=== PATIENT | female | born 1985 | race Two or more races ===

== ENCOUNTER 2018-10-21 16:36 | Emergency (ER) | payer OTHER ==
[~2018-10-21] VITALS: Ht 157.5 cm; Wt 59.0 kg
--- NOTE | 2018-10-21 16:36 | NUR ---
ED Nurse Note: pt brought in by [phone] from [facility], per EMS report, pt c/o abd pain x 30 min and nausea w/ vomiting x2. Hx gallstones and reports she had 2 months ago. Pt AA&ox4, gcs=15, skin warm and dry, +n but no vomiting at this time, +tenderness on RUQ abd, active BS, will cont monitor. VSS. custody at the bedside
[2018-10-21] MEDS ORDERED: Metoclopramide 10mg/2ml Inj IVP ONE (16:45)
[2018-10-21] MEDS ORDERED: DiphenhydrAMINE 50mg/ml Inj IVP ONE (16:45)
[2018-10-21] MEDS ORDERED: Morphine Sulfate 4mg/ml Inj (IV USE ONLY) IVP ONE (16:45)
[2018-10-21 16:53] LABS: APPEARANCE,URINE SLIGHTLY CLOUDY; BILIRUBIN, URINE NEGATIVE (NEGATIVE); COLOR,URINE AMBER; GLUCOSE, URINE (UA) NEGATIVE (NEGATIVE); KETONES,URINE NEGATIVE (NEGATIVE); LEUKOCYTE ESTERASE ,URINE 2+ (NEGATIVE); NITRITE,URINE NEGATIVE (NEGATIVE); PH,URINE 5 (4.5-8.0); PROTEIN,URINE 1+ (NEGATIVE); UROBILINOGEN,URINE NORMAL MG/DL (0.0-1.0)
--- NOTE | 2018-10-21 16:58 | NUR ---
ED Nurse Note: ultrasound at the bedside.
[2018-10-21 17:02] LABS: BASOPHILS % (AUTO) 0.5 % (0.0-2.0); HEMATOCRIT 34.9 % (37.0-47.0); HEMOGLOBIN 12.7 G/DL (12.0-16.0); LYMPHOCYTES % (AUTO) 12.8 % (20.0-45.0); MEAN CORPUSCULAR VOLUME 104 FL (80-99); MONOCYTES % (AUTO) 3.8 % (1.0-10.0); PLATELET COUNT 323 K/UL (150-450); RED BLOOD COUNT 3.36 M/UL (4.20-5.40); RED CELL DISTRIBUTION WIDTH 10.5 % (11.6-14.8); WHITE BLOOD COUNT 11.2 K/UL (4.8-10.8)
[2018-10-21 17:05] VITALS: BP 111/74
[2018-10-21 17:07] LABS: ANION GAP 12 mmol/L (5-15); BLOOD UREA NITROGEN 13 mg/dL (7-18); CALCIUM 8.8 MG/DL (8.5-10.1); CARBON DIOXIDE 25 MMOL/L (21-32); CHLORIDE 104 MMOL/L (98-107); CREATININE 0.6 MG/DL (0.55-1.30); INR 1.1 (0.9-1.1); POTASSIUM 3.5 MMOL/L (3.5-5.1); SODIUM 141 MMOL/L (136-145)
--- NOTE | 2018-10-21 17:09 | Emergency Room Report ---
History of Present Illness General Chief Complaint: Abdominal Pain Source: Patient, EMS Present Illness HPI Patient presents with severe right upper quadrant pain. It began a few hours ago. She's in longterm and was brought by EMS here. She says the pain is 10/10 and radiating towards her back. She denies any fevers or chills. She's not vomiting any coffee grounds. She's moved her bowels normally. She has irregular periods and did have some bleeding in September but it was abnormal. She doesn't believe she is at this time. The patient has a history of gallbladder disease. They're talking about doing surgery at some point (ultrasound today reveals post poncho!). She believes it might be related to that. The patient denies drugs or alcohol. She also denies hepatitis. Allergies: Coded Allergies: IBUPROFEN (Verified Allergy, Unknown, 10/21/18) Patient History Past Medical History: see triage record Past Surgical History: poncho Social History: Denies: alcohol use, drug use Social History Narrative in custody for forgery Last Menstrual Period: unk Now: No : 9 Para: 8 Reviewed Nursing Documentation: PMH: Agreed; PSxH: Agreed Nursing Documentation-PMH Past Medical History: No History, Except For Review of Systems All Other Systems: negative except mentioned in HPI Physical Exam Vital Signs Date Time Temp Pulse Resp B/P (MAP) Pulse Ox O2 Delivery O2 Flow Rate FiO2 10/21/18 16:28 97.7 92 18 111/56 100 Room Air Sp02 EP Interpretation: reviewed, normal General Appearance: alert, GCS 15, mild distress Head: normocephalic Eyes: bilateral eye normal inspection, bilateral eye PERRL, bilateral eye EOMI ENT: moist mucus membranes Neck: supple Respiratory: lungs clear, normal breath sounds Cardiovascular #1: regular rate, rhythm Cardiovascular #2: 2+ radial (R) Gastrointestinal: normal inspection, non-distended, no rebound, guarding - Right upper quadrant, tenderness, decreased bowel sounds Genitourinary: no CVA tenderness Musculoskeletal: back normal, gait/station normal, normal range of motion Neurologic: alert, oriented x3, grossly normal Psychiatric: depressed affect Skin: normal inspection, warm/dry Medical Decision Making Diagnostic Impression: Primary Impression: RUQ abdominal pain Additional Impression: UTI (urinary tract infection) Qualified Codes: N30.00 - Acute cystitis without hematuria ER Course Patient presents with quadrant pain with a history of gallbladder disease. Differential includes pancreatitis, ulcer disease, cholecystitis, little cholelithiasis amongst others. Evaluation will be with labs and ultrasound. The patient will be treated with IV hydration, Pepcid, Reglan, Benadryl and morphine. U/S - post poncho. Min elevated WBC. UA with pyuria. Normal CMP and lipase. During U/S patient started shaking, stating she could not control the shaking. When told to calm down, the shaking stopped. Start antibiotics for UTI. Resting without pain. Patient stable for outpatient treatment and incarceration. Laboratory Tests Test 10/21/18 16:40 White Blood Count 11.2 K/UL (4.8-10.8) H Red Blood Count 3.36 M/UL (4.20-5.40) L Hemoglobin 12.7 G/DL (12.0-16.0) Hematocrit 34.9 % (37.0-47.0) L Mean Corpuscular Volume 104 FL (80-99) H Mean Corpuscular Hemoglobin 37.7 PG (27.0-31.0) H Mean Corpuscular Hemoglobin Concent 36.3 G/DL (32.0-36.0) H Red Cell Distribution Width 10.5 % (11.6-14.8) L Platelet Count 323 K/UL (150-450) Mean Platelet Volume 5.8 FL (6.5-10.1) L Neutrophils (%) (Auto) 83.0 % (45.0-75.0) H Lymphocytes (%) (Auto) 12.8 % (20.0-45.0) L Monocytes (%) (Auto) 3.8 % (1.0-10.0) Eosinophils (%) (Auto) 0.0 % (0.0-3.0) Basophils (%) (Auto) 0.5 % (0.0-2.0) Prothrombin Time 11.3 SEC (9.30-11.50) Prothrombin Time INR 1.1 (0.9-1.1) PTT 30 SEC (23-33) Urine Color Rissa Urine Appearance Slightly cloudy Urine pH 5 (4.5-8.0) Urine Specific [place] 1.020 (1.005-1.035) Urine Protein 1+ (NEGATIVE) H Urine Glucose (UA) Negative (NEGATIVE) Urine Ketones Negative (NEGATIVE) Urine Blood 1+ (NEGATIVE) H Urine Nitrite Negative (NEGATIVE) Urine Bilirubin Negative (NEGATIVE) Urine Ictotest Negative (NEGATIVE) Urine Urobilinogen Normal MG/DL (0.0-1.0) Urine Leukocyte Esterase 2+ (NEGATIVE) H Urine RBC 0-2 /HPF (0 - 2) Urine WBC 10-15 /HPF (0 - 2) H Urine Squamous Epithelial Cells Many /LPF (NONE/OCC) H Urine Bacteria Many /HPF (NONE) H Urine HCG, Qualitative Negative (NEGATIVE) Sodium Level 141 MMOL/L (136-145) Potassium Level 3.5 MMOL/L (3.5-5.1) Chloride Level 104 MMOL/L (98-107) Carbon Dioxide Level 25 MMOL/L (21-32) Anion Gap 12 mmol/L (5-15) Blood Urea Nitrogen 13 mg/dL (7-18) Creatinine 0.6 MG/DL (0.55-1.30) Estimate Glomerular Filtration Rate > 60 mL/min (>60) Glucose Level 104 MG/DL (74-106) Calcium Level 8.8 MG/DL (8.5-10.1) Total Bilirubin 0.9 MG/DL (0.2-1.0) Aspartate Amino Transferase (AST) 15 U/L (15-37) Alanine Aminotransferase (ALT) 22 U/L (12-78) Alkaline Phosphatase 106 U/L (46-116) Total Protein 8.0 G/DL (6.4-8.2) Albumin 4.0 G/DL (3.4-5.0) Globulin 4.0 g/dL Albumin/Globulin Ratio 1.0 (1.0-2.7) Lipase 99 U/L (73-393) CT/MRI/US Diagnostic Results CT/MRI/US Diagnostic Results : Imaging Test Ordered: abd u/s Impression IMPRESSION: No acute findings. Last Vital Signs Date Time Temp Pulse Resp B/P (MAP) Pulse Ox O2 Delivery O2 Flow Rate FiO2 10/21/18 18:10 97.7 94 18 114/57 100 Room Air Status: improved Disposition: D/C TO [facility] Condition: Improved Scripts Nitrofurantoin Monohyd/M-Cryst* (MACROBID 100 MG*) 100 Mg Capsule 100 MG ORAL EVERY 12 HOURS, #14 CAP Prov: Chas Jorgensen MD 10/21/18 Famotidine (PEPCID AC) 20 Mg Tablet 20 MG PO DAILY, #20 TAB Prov: Chas Jorgensen MD 10/21/18 Acetaminophen (Tylenol) 325 Mg Tablet 650 MG ORAL Q6H PRN for Prn Pain/Headache/Temp > 101, #20 TAB 0 Refills Prov: Chas Jorgensen MD 10/21/18 Chas Jorgensen MD Oct 21, 2018 17:09
[2018-10-21 17:12] LABS: ALANINE AMINOTRANSFERASE 22 U/L (12-78); ALKALINE PHOSPHATASE 106 U/L (46-116); ASPARTATE AMINO TRANSFERASE 15 U/L (15-37); BILIRUBIN,TOTAL 0.9 MG/DL (0.2-1.0)
[2018-10-21] MEDS ORDERED: NITROFURANTOIN100 M2 ORAL (17:59)
[2018-10-21] MEDS ORDERED: TYLENOL325 MG ORAL (17:59)
[2018-10-21] MEDS ORDERED: PEPCID AC20 M2 PO (17:59)
--- NOTE | 2018-10-21 18:07 | Diagnostic Imaging Report ---
EXAM: US Abdomen Complete CLINICAL HISTORY: ABD PAIN TECHNIQUE: Real-time ultrasound of the abdomen (complete) with image documentation. COMPARISON: No relevant prior studies available. FINDINGS: Liver: Unremarkable. No mass. Gallbladder: Cholecystectomy. Common bile duct: CBD 2 mm. Pancreas: Unremarkable as visualized. Kidneys: Unremarkable. No hydronephrosis. Spleen: Unremarkable. Aorta: Unremarkable as visualized. Inferior vena cava: Unremarkable as visualized. IMPRESSION: No acute findings.
[2018-10-21 18:10] VITALS: BP 114/57
--- NOTE | 2018-10-21 18:10 | NUR ---
ED Nurse Note: PT cleared to be d/c per ERMD, pt discharge and aftercare instruction provided w/ prescription, pt education done via discussion and handout, paperwork given to [employer], pt advised to follow up with longterm medical staff, pt verbalized understanding, pt vss, resp even and unlabored on RA, ambulatory w/ steady gait, ID band removed, Iv d/c and dressing applied, left w/ all belongings.
== END 2018-10-21 18:10 ==
LOC: EDBD 16:36 → EMR 17:40
DX: N30.00 Acute cystitis without hematuria (principal); R10.11 Right upper quadrant pain; Z88.6 Allergy status to analgesic agent; Z90.49 Acquired absence of other specified parts of digestive tract
CPT/HCPCS: 36415; 76700; 80053; 81003; 81025; 83690; 85025; 85610; 85730; 87086; 96361; 96374; 96375; 99284; J1200; J2270; J2765; S0028